=== PATIENT | female | born 1960 | race Caucasian/White ===

== ENCOUNTER 2018-06-06 13:24 | Emergency (ER) | payer OTHER ==
[2018-06-06 13:44] VITALS: BMI 27.2
--- NOTE | 2018-06-06 14:11 | PDOC ---
History of Present Illness - General Chief Complaint: Irregular Heart Beat Stated Complaint: ABNORMAL EKG Time Seen by Provider: 06/06/18 13:46 - History of Present Illness Initial Comments: The patient is a 58F with a history of HTN who presents with 4 days of palpitations associated with anxiety, lightheadedness, and nausea. She reports that 06/02/2018, he PCP switched her BP medication from amlodipine and Toprol to combination Triamterene-HCTZ. She denies ever having had symptoms like this is the past. She denies history of irregular heart beat. She denies SILVA, vision changes, LOC, CP, SOB, abdominal pain, or changes in sensation 06/06/18 14:05 Past History - Past Medical History Allergies/Adverse Reactions: Allergies Allergy/AdvReac Type Severity Reaction Status Date / Time No Known Allergies Allergy Verified 06/06/18 13:41 Home Medications: Ambulatory Orders Metoprolol Succinate [Toprol XL -] 50 mg PO DAILY 7 Days #7 tablet 06/06/18 Triamterene/Hydrochlorothiazid [Triamterene-Hctz 37.5-25 mg Cp] 1 each PO DAILY 06/06/18 COPD: No HTN: Yes - Surgical History Appendectomy: Yes - Suicide/Smoking/Psychosocial Hx Smoking History: Never smoked Review of Systems - Review of Systems Able to Perform ROS?: Yes Comments:: GENERAL/CONSTITUTIONAL: No fever or chills. No weakness HEAD, EYES, EARS, NOSE AND THROAT: No change in vision. No ear pain or discharge. No sore throat CARDIOVASCULAR: No chest pain or shortness of breath RESPIRATORY: No cough, wheezing, or hemoptysis GASTROINTESTINAL: +nausea; no vomiting, diarrhea or constipation GENITOURINARY: No dysuria, frequency, or change in urination MUSCULOSKELETAL: No joint or muscle swelling or pain. No neck or back pain SKIN: No rash NEUROLOGIC: No headache, loss of consciousness, or change in strength/sensation ENDOCRINE: No increased thirst. No abnormal weight change HEMATOLOGIC/LYMPHATIC: No anemia, easy bleeding, or history of blood clots ALLERGIC/IMMUNOLOGIC: No hives or skin allergy 06/06/18 14:10 Is the patient limited Slovak proficient: No *Physical Exam - Vital Signs Last Vital Signs Temp Pulse Resp BP Pulse Ox 99.6 F 134 H 18 172/107 100 06/06/18 13:41 06/06/18 13:41 06/06/18 13:41 06/06/18 13:41 06/06/18 13:41 - Physical Exam Comments: GENERAL: Awake, alert, and fully oriented, in no acute distress HEAD: No signs of trauma, normocephalic, atraumatic EYES: PERRL, EOMI, sclera anicteric, conjunctiva clear ENT: Hearing grossly normal, nares patent, oropharynx clear without exudates. Moist mucosa NECK: Normal ROM, supple LUNGS: No distress, speaks full sentences, clear to auscultation bilaterally HEART: Tachycardic, regular rhythm, normal S1 and S2, no murmurs appreciated, peripheral pulses normal and equal bilaterally ABDOMEN: Soft, nontender, normoactive bowel sounds. No guarding, no rebound EXTREMITIES : Normal inspection, Normal range of motion, no edema. No clubbing or cyanosis NEUROLOGICAL: Cranial nerves II through XII grossly intact. Normal speech, normal gait, no focal sensorimotor deficits SKIN: Warm, Dry, normal turgor, no rashes or lesions noted 06/06/18 14:11 ED Treatment Course - LABORATORY CBC & Chemistry Diagram: 06/06/18 14:05 06/06/18 14:05 - RADIOLOGY Radiology Studies Ordered: Category Date Time Status CHEST PA & LAT [RAD] Stat Radiology 06/06/18 13:47 Ordered Medical Decision Making - Medical Decision Making The patient is a 58F with a history of HTN who recently swithced therapy who presents with 4 days of palpitations and anxiety. Ddx: ACS, rebound HTN/tachy s/p DC amlodipine/Toprol; less likely PNA, PE, PNX ED Course CMP, CBC, UA, Cardiac Enzymes ECG, CXR ECG with sinus tachycardia CXR without evidence of PNX or PNA CBC without leukocytosis Lytes with mild elevation of BUN and Cr; Urine negative for UTI 06/06/18 15:38 Will give Metoprolol 50mg PO once as patient stated she was previously controlled on this medication Trop negative 06/06/18 16:11 Patient's BP and HR significantly improved s/p Metoprolol. Patient also reports significant improvement in symptoms. Will prescribe patient 7 days of Toprol XR 50mg PO daily with PCP and Cardiology f/u. Dispo: Home with PCP and Cardiology f/u 08/06/18 17:33 *DC/Admit/Observation/Transfer Diagnosis at time of Disposition: Palpitations - Discharge Dispostion Disposition: HOME Condition at time of disposition: Improved Decision to Admit order: No - Prescriptions Prescriptions: Metoprolol Succinate [Toprol XL -] 50 mg PO DAILY 7 Days #7 tablet - Referrals Referrals: Dexter Viramontes MD [Primary Care Provider] - Jarek Lynne MD [Staff Physician] - - Patient Instructions Printed Discharge Instructions: DI for Palpitations Additional Instructions: You were seen today in the Emergency Department for palpitations. You were found to have high blood pressure in addition to a fast heart rate. You did not have any signs of heart attack to infection. You were given a prescription for Metoprolol 50mg by mouth daily, the same as before. Stop taking if you feel dizzy, have blurry vision, or chest pain. Follow up with your primary care physician in the next 1-3 days and you were given a Transition Coach referral as well. Return to the Emergency Department if you develop fevers/chills, chest pain, trouble breathing, worsening symptoms, or any new concerning symptoms. - Post Discharge Activity Forms/Work/School Notes: Back to Work
[2018-06-06 14:16] LABS: HEMATOCRIT 43.8 % (32.4-45.2); HEMOGLOBIN 14.9 GM/dL (10.7-15.3); MCH 30.2 pg (25.7-33.7); MEAN CELL VOLUME 88.7 fl (80-96); MEAN PLT VOLUME 8.1 fl (7.5-11.1); PLATELET COUNT 291 K/MM3 (134-434); RBC 4.94 M/mm3 (3.60-5.2); RDW 13.1 % (11.6-15.6); WHITE BLOOD COUNT 11.1 K/mm3 (4.0-10.0)
--- NOTE | 2018-06-06 14:23 | PDOC ---
Attending Attestation - HPI HPI: 06/06/18 16:45 The patient is a 58 year old female, with a significant past medical history of HTN, who presents to the emergency department with, 4 days of palpitations. As per patient, she has been experiencing associated anxiety, lightheadedness, and nausea. The symptoms onset after her PCP switched her blood pressure medication from amlodipine and Toprol to Triamterene-HCTZ. She denies recent fevers, chills, headache or dizziness. She denies recent vomit , diarrhea or constipation. She denies recent dysuria, frequency, urgency or hematuria. She denies recent chest pain or shortness of breath. Allergies: NKA Primary Care Physician: Dr. Viramontes - Physicial Exam PE: 06/06/18 16:45 GENERAL: The patient is in no acute distress. HEAD: Normal with no signs of trauma. NECK: Normal range of motion, supple without lymphadenopathy, JVD, or masses. ABDOMEN: Soft, nontender, normoactive bowel sounds. No guarding, no rebound. No masses palpable. EXTREMITIES: Normal range of motion, no edema. No clubbing or cyanosis. No erythema, or tenderness. NEUROLOGICAL: Cranial nerves II through XII grossly intact. Normal speech. No focal neurological deficits. MUSCULOSKELETAL: Back non-tender to palpation, no CVA tenderness SKIN: Warm, Dry, normal turgor, no rashes or lesions noted. <Mabel Fair - Last Filed: 06/06/18 16:45> - Resident Resident Name: Michael Nath - ED Attending Attestation I have performed the following: I have examined & evaluated the patient, The case was reviewed & discussed with the resident, I agree w/resident's findings & plan, Exceptions are as noted - Medical Decision Making 06/08/18 10:10 58 yo F presenting with palpitations and htn s/p medication adjustment Pt given Metoprolol HR and BP improved Will discharge to home Follow up with PMD Toprol restarted Laboratory Tests 06/06/18 06/06/18 14:05 14:05 WBC 11.1 H Hgb 14.9 Hct 43.8 Plt Count 291 BUN 23 H Creatinine 1.3 H Creatine Kinase 65 Troponin I < 0.02 Return for any other concerns or complaints Follow up with PMd within 1 week <Amanda Haney - Last Filed: 06/08/18 10:14> Attestations - Attestations 06/06/18 16:45 Documentation prepared by Mabel Fair, acting as paramedical aide for Amanda Haney MD. <Mabel Fair - Last Filed: 06/06/18 16:45>
[2018-06-06 14:52] LABS: ALBUMIN 4.2 g/dl (3.4-5.0); ANION GAP 9 (8-16); BILIRUBIN,TOTAL 0.2 mg/dL (0.2-1.0); BLOOD UREA NITROGEN 23 mg/dL (7-18); CALCIUM 9.6 mg/dL (8.5-10.1); CHLORIDE 101 mmol/L (98-107); CO2 27 mmol/L (21-32); CREATININE 1.3 mg/dL (0.55-1.02); GLUCOSE,RANDOM 110 mg/dL (74-106); POTASSIUM 3.6 mmol/L (3.5-5.1); SGOT/AST 14 U/L (15-37); SGPT/ALT 32 U/L (12-78); SODIUM 137 mmol/L (136-145); TOT PROT 8.8 g/dl (6.4-8.2)
[2018-06-06 14:55] LABS: ALK PHOS 94 U/L (45-117)
[2018-06-06] MEDS ORDERED: LABETALOL HCL 200 MG TABLET (FP) PO ONE (15:48)
[2018-06-06] MEDS ORDERED: amLODIPine BESYLATE 10 MG TABLET (FP) PO ONE (16:07)
[2018-06-06] MEDS ORDERED: LABETALOL HCL 100 MG TABLET (FP) ONE (16:08)
[2018-06-06] MEDS ORDERED: METOPROLOL TARTRATE 50 MG TABLET (FP) ONE (16:09)
[2018-06-06] MEDS ORDERED: METOPROLOL TARTRATE 50 MG TABLET (FP) PO ONE (16:10)
[2018-06-06 16:53] VITALS: BP 140/91; PULSE 86; TEMP 99.4
--- NOTE | 2018-06-07 16:27 | EKG ---
Test Reason : Blood Pressure : / mmHG Vent. Rate : 136 BPM Atrial Rate : 136 BPM P-R Int : 000 ms QRS Dur : 074 ms QT Int : 372 ms P-R-T Axes : 000 015 053 degrees QTc Int : 559 ms SINUS TACHYCARDIA WITH SHORT KS NONSPECIFIC ST AND T WAVE ABNORMALITY ABNORMAL ECG NO PREVIOUS ECGS AVAILABLE Confirmed by Anthony Ruiz MD ([id number]) on 06/07/2018 4:27:11 PM Referred By: Confirmed By:Anthony Ruiz MD
== END 2018-06-06 17:12 | disposition home or self-care (01) ==
LOC: JER 13:24
DX: R00.2 Palpitations (principal); I10 Essential (primary) hypertension
CPT/HCPCS: 36415; 71046-TC-FY; 80053; 82550; 84484; 85027; 93005; 93010; 99284-25

== ENCOUNTER 2022-11-10 05:12 | Day surgery (SDC) | payer OTHER ==
[2022-11-09 14:12] VITALS: BMI 29.1
[2022-11-10 12:34] VITALS: TEMP 98
[2022-11-10 14:07] VITALS: BP 101/63; PULSE 82; RESP 19
== END 2022-11-10 13:48 | disposition home or self-care (01) ==
LOC: JASU-ENDO 05:12
PROVIDERS: ATTEND Internal Medicine Gastroenterology
PROC: 0DBM8ZX Excision of Descending Colon, Via Natural or Artificial Opening Endoscopic, Diagnostic (ICD-10-PCS; 2022-11-10)
PROC: 0DBL8ZX Excision of Transverse Colon, Via Natural or Artificial Opening Endoscopic, Diagnostic (ICD-10-PCS; 2022-11-10)
PROC: 0D5N8ZZ Destruction of Sigmoid Colon, Via Natural or Artificial Opening Endoscopic (ICD-10-PCS; principal; 2022-11-10 11:15)
DX: Z12.11 Encounter for screening for malignant neoplasm of colon (principal); Z86.010 Personal history of colon polyps; D12.7 Benign neoplasm of rectosigmoid junction; D12.5 Benign neoplasm of sigmoid colon; D12.4 Benign neoplasm of descending colon; D12.3 Benign neoplasm of transverse colon; K64.8 Other hemorrhoids; K57.30 Diverticulosis of large intestine without perforation or abscess without bleeding
CPT/HCPCS: 88305-TC